=== PATIENT | male | born 1995 | race Caucasian/White ===

== ENCOUNTER 2016-05-29 19:27 | Emergency (ER) | payer BC, OTHER ==
[2016-05-29] MEDS ORDERED: Insulin Aspart 100 Units/ML 3 ML Pen SUBCUT SCH (20:00)
[2016-05-29 20:39] VITALS: BP 126/78
--- NOTE | 2016-06-01 15:54 | ER ---
DATE SEEN: 05/29/2016 TIME SEEN: The patient was seen at 1940 hours. CHIEF COMPLAINT: Ran out of his NovoLog insulin. HISTORY OF PRESENT ILLNESS: The patient has an insulin pump. He has been diabetic for 10-1/2 years and did not get to the pharmacy in time tonight. He needs insulin tonight. ALLERGIES: No allergies. PAST MEDICAL HISTORY: Diabetes. No surgery, hospitalizations, serious illness, or problems. REVIEW OF SYSTEMS: The patient denies difficulty with vision, headaches, lightheadedness, problems swallowing, breathing, shortness of breath chest pain, abdominal discomfort, nausea, vomiting, diarrhea, complaints, musculoskeletal complaints, dermis complaints, or peripheral neuropathy complaints. PHYSICAL EXAMINATION: VITAL SIGNS: See nurse's notes regarding vital signs. GENERAL: An alert, muscular, healthy, and robust young male, who has no complaints presently. HEENT: Without abnormality. PERRLA intact. There is no arterial narrowing. Hearing is good. Pharynx without dryness of mucosa. Mucosa is normal. NECK: Without cervical adenopathy. LUNGS: Clear to auscultation without rales, rhonchi, or wheezes. HEART: S1 and S2. No murmur. No irregular rate and rhythm. ABDOMEN: Soft. No guarding. No abdominal discomfort. Dermis without rashes. NEUROLOGIC: No evidence for dysesthesia or peripheral neuropathy. ASSESSMENT: 1. The patient forgot to purchase insulin on time. 2. Insulin-dependent diabetes of 10-1/2 years. PLAN: He was given a vial of 100 units to fill his pump and to follow up with his doctor as needed. /[id number] JELENA/JOY
--- NOTE | 2016-08-07 10:48 | ER ---
DATE SEEN: 05/29/2016 ADDENDUM: DIAGNOSIS: Type 1 diabetes. /[id number] JELENA/JOY
== END 2016-05-29 20:05 | disposition home or self-care (01) ==
LOC: FB.ED 19:27
DX: E10.9 Type 1 diabetes mellitus without complications (principal); Z79.4 Long term (current) use of insulin
CPT/HCPCS: 99281; A9270

== ENCOUNTER 2024-09-07 00:31 | Emergency (ER) | payer BC, OTHER ==
[2024-09-07] MEDS: Acetaminophen/oxyCODONE 325-5 MG Tab PO PRN (00:59)
== END 2024-09-07 01:06 | disposition home or self-care (01) ==
LOC: FB.ED 00:31
DX: H60.92 Unspecified otitis externa, left ear (principal); E10.9 Type 1 diabetes mellitus without complications; Z79.4 Long term (current) use of insulin
CPT/HCPCS: 99282; A9270-GY